=== PATIENT | female | born 1930 | race Caucasian/White ===

== ENCOUNTER 2017-02-10 08:08 | Emergency (ER) | payer MEDICARE ==
[~2017-02-10] VITALS: Ht 162.6 cm; Wt 64.0 kg
[~2017-02-10 08:08] MED LIST: ACET-1757 PO; ALPR0.25 PO; BISA10SU2 PR; DIAZ5TAB PO; DOCU-30 PO; ENOX40SY4 SQ; LEVO112T2 PO; LEVO125T PO; LEVO125T5 PO; MAG355OR15 PO; MULT1TAB60 PO; ONDA4TAB7 PO; OXYC5TAB3 PO; POLY17PO5 PO; SCOP1PAT TD
[2017-02-10] MEDS ORDERED: ONDANSETRON 2MG/ML, 2ML ONE (08:36)
[2017-02-10] MEDS ORDERED: MECLIZINE CHEWABLE 25 MG TAB ONE (08:45)
[2017-02-10] MEDS ORDERED: SODIUM CHLORIDE 0.9% 1,000ML IVBOLUS ONE (09:00)
[2017-02-10] MEDS ORDERED: ONDANSETRON 2MG/ML, 2ML IVPush ONE (09:00)
[2017-02-10] MEDS ORDERED: MECLIZINE CHEWABLE 25 MG TAB PO ONE (09:00)
[2017-02-10] MEDS ORDERED: SODIUM CHLORIDE FLUSH 10ML SYR IVF ONE (09:00)
[2017-02-10 09:25] LABS: ASPARTATE AMINO TRANSFERASE 18 U/L (15-37); BLOOD UREA NITROGEN 14 mg/dL (7-18)
[2017-02-10 09:32] LABS: IS PT STATUS REG ER OR PRE ER? YES
[2017-02-10 09:32] LABS: PATH.CAST-FLAG NOT PRESENT; SPERM-FLAG NOT PRESENT; SRC-FLAG NOT PRESENT; XTAL-FLAG NOT PRESENT; YLC-FLAG NOT PRESENT
[2017-02-10] MEDS ORDERED: GADOBUTROL 7.5 MMOL/7.5 ML PFS ONE (12:02)
[2017-02-10 13:02] VITALS: BP 127/78
== END 2017-02-10 13:04 | disposition home or self-care (01) ==
LOC: ED 09:51
DX: H81.13 Benign paroxysmal vertigo, bilateral (principal); E03.9 Hypothyroidism, unspecified; I48.91 Unspecified atrial fibrillation; I51.7 Cardiomegaly; M19.90 Unspecified osteoarthritis, unspecified site; Z85.3 Personal history of malignant neoplasm of breast
CPT/HCPCS: 36415; 70450; 70553; 71010; 80053; 81001; 84484; 85025; 85610; 85730; 87086; 93005; 96374; 99285; A9585; J2405; J7030

== ENCOUNTER 2018-02-05 11:06 | Inpatient (IN) | payer MEDICARE ==
[~2018-02-05] VITALS: Ht 167.6 cm; Wt 69.8 kg
[~2018-02-05 11:06] MED LIST changes: +DOCU-131 PO; -DOCU-30 PO; -SCOP1PAT TD; +SCOP1PAT11 TD
[2018-02-05] MEDS ORDERED: PLEASE ENTER HEIGHT AND WEIGHT MC SCH (11:30)
[2018-02-05] MEDS ORDERED: DIPH,PERTUSS(ACELL),TET VAC/PF 0.5 ML IM-VACC ONE ×2 (11:30→11:42)
[2018-02-05] MEDS ORDERED: SODIUM CHLORIDE FLUSH 10ML SYR IVF ONE (11:30)
[2018-02-05 11:51] LABS: ALBUMIN 3.3 g/dL (3.4-5.0); ANION GAP 7 mmol/L (5-15); CALCIUM 8.7 mg/dL (8.5-10.1); CHLORIDE 100 mmol/L (98-107); CREATININE 0.53 mg/dL (0.55-1.02)
[2018-02-05 12:43] LABS: BASOPHILS % (AUTO) 0 % (0-1); EOSINOPHILS # (AUTO) 0.09 x10^3/uL (0-0.4); EOSINOPHILS % (AUTO) 1 % (1-7); LYMPHOCYTES # (AUTO) 1.45 x10^3/uL (1-3.4); LYMPHOCYTES % (AUTO) 16 % (22-44); MD NO; MEAN CORPUSCULAR HEMOGLOBIN 31.2 pg (27.0-34.8); MEAN CORPUSCULAR HGB CONC 33.2 g/dL (32.4-35.8); MEAN CORPUSCULAR VOLUME 93.9 fL (80-100); MEAN PLATELET VOLUME 8.2 fL (7.4-10.4); MONOCYTES # (AUTO) 0.57 x10^3/uL (0.2-0.8); MONOCYTES % (AUTO) 6 % (2-9); NEUTROPHILS # (AUTO) 7.13 x10^3/uL (1.8-6.8); NEUTROPHILS % (AUTO) 77 % (42-75); PLATELET COUNT 223 x10^3/uL (130-400); RED CELL DISTRIBUTION WIDTH 15.4 % (9.6-15.2)
[2018-02-05] MEDS ORDERED: LEVO112T4 PO (12:54)
[2018-02-05] MEDS ORDERED: MORPHINE SULFATE 4 MG/ML, 1ML ONE (13:22)
[2018-02-05] MEDS ORDERED: ONDANSETRON ODT 4 MG PO PRN (13:30)
[2018-02-05] MEDS ORDERED: MORPHINE SULFATE 4 MG/ML, 1ML IVPush PRN (13:30)
[2018-02-05 14:44] VITALS: BP 143/73
[2018-02-05] MEDS ORDERED: ONDANSETRON 2MG/ML, 2ML IVPush PRN (15:30)
[2018-02-05] MEDS ORDERED: ACETAMINOPHEN 325 MG TABLET PO PRN (15:30)
[2018-02-05] MEDS ORDERED: morphine SULFATE 10 MG/ML, 1ML IVPush PRN (15:30)
[2018-02-05] MEDS ORDERED: ENOXAPARIN 40 MG/0.4 ML SQ SCH (15:30)
[2018-02-05] MEDS ORDERED: hydrALAzine 20 MG/ML, 1ML IVPush PRN (15:30)
[2018-02-05 15:56] VITALS: BP 119/68
[2018-02-05 16:03] LABS: INTERNATIONAL NORMALIZED RATIO 1.01 (0.93-1.1); PROTHROMBIN TIME 10.5 Seconds (9.6-11.5)
[2018-02-05 18:22] VITALS: BP 102/57
[2018-02-06 00:05] VITALS: BP 102/61
[2018-02-06 04:38] LABS: MEAN CORPUSCULAR HEMOGLOBIN 31.9 pg (27.0-34.8); MEAN CORPUSCULAR VOLUME 94.1 fL (80-100); MEAN PLATELET VOLUME 7.7 fL (7.4-10.4); PLATELET COUNT 193 x10^3/uL (130-400); RED BLOOD COUNT 3.72 x10^6/uL (3.82-5.3)
[2018-02-06 05:11] LABS: BASOPHILS # (AUTO) 0.02 x10^3/uL (0-0.1); BASOPHILS % (AUTO) 0 % (0-1); EOSINOPHILS # (AUTO) 0.16 x10^3/uL (0-0.4); EOSINOPHILS % (AUTO) 2 % (1-7); LYMPHOCYTES # (AUTO) 1.71 x10^3/uL (1-3.4); LYMPHOCYTES % (AUTO) 17 % (22-44); MD SCAN; MONOCYTES # (AUTO) 0.52 x10^3/uL (0.2-0.8); MONOCYTES % (AUTO) 5 % (2-9); NEUTROPHILS # (AUTO) 7.43 x10^3/uL (1.8-6.8); NEUTROPHILS % (AUTO) 76 % (42-75)
[2018-02-06] MEDS: HYDROcodone/APAP 5/325 TABLET PO PRN ×3 (06:50→21:08)
[2018-02-06] MEDS: ASPIRIN 81 MG TABLET EC PO SCH (06:50)
[2018-02-06] MEDS ORDERED: HEPARIN 5,000 UNITS/ML, 1ML SQ SCH (07:00)
[2018-02-06 07:15] VITALS: BP 105/63
[2018-02-06] MEDS: SODIUM CHLORIDE 0.9% 1,000 ML IV SCH (08:43)
[2018-02-06] MEDS: LEVOTHYROXINE 112 MCG TABLET PO SCH (08:43)
[2018-02-06] MEDS: DOCUSATE 100 MG CAPSULE PO SCH ×2 (11:00→19:37)
[2018-02-06] MEDS ORDERED: POLYETHYLENE GLYCOL 17 GM PACKET PO PRN (12:30)
[2018-02-06] MEDS: ENOXAPARIN 40 MG/0.4 ML SQ SCH (12:36)
[2018-02-06 13:55] VITALS: BP 103/61
[2018-02-06 22:15] VITALS: BP 105/62
[2018-02-07 02:35] VITALS: BP 108/68
[2018-02-07] MEDS: SODIUM CHLORIDE 0.9% 1,000 ML IV SCH (02:42)
[2018-02-07 05:45] LABS: CHLORIDE 103 mmol/L (98-107)
[2018-02-07 05:51] LABS: ALANINE AMINOTRANSFERASE 18 U/L (12-78); ALBUMIN 2.7 g/dL (3.4-5.0); ALKALINE PHOSPHATASE 63 U/L (45-117); ANION GAP 6 mmol/L (5-15); BILIRUBIN,TOTAL 0.9 mg/dL (0.2-1.0); CALCIUM 8.2 mg/dL (8.5-10.1); CREATININE 0.38 mg/dL (0.55-1.02); TOTAL PROTEIN 5.5 g/dL (6.4-8.2)
[2018-02-07 06:40] VITALS: BP 123/72
[2018-02-07] MEDS: ASPIRIN 81 MG TABLET EC PO SCH (06:50)
[2018-02-07] MEDS: HYDROcodone/APAP 5/325 TABLET PO PRN ×3 (06:50→18:29)
[2018-02-07] MEDS: LEVOTHYROXINE 112 MCG TABLET PO SCH (06:50)
[2018-02-07] MEDS: DOCUSATE 100 MG CAPSULE PO SCH ×2 (10:45→22:23)
[2018-02-07] MEDS: MAGNESIUM HYDROXIDE 8%, 30ML UDC PO SCH (10:45)
[2018-02-07] MEDS: ENOXAPARIN 40 MG/0.4 ML SQ SCH (13:57)
[2018-02-07 14:22] VITALS: BP 115/68
[2018-02-07 19:00] VITALS: BP 115/68
[2018-02-08 02:15] VITALS: BP 121/75
[2018-02-08] MEDS: HYDROcodone/APAP 5/325 TABLET PO PRN ×2 (02:20→20:59)
[2018-02-08] MEDS: ASPIRIN 81 MG TABLET EC PO SCH (06:26)
[2018-02-08] MEDS: LEVOTHYROXINE 112 MCG TABLET PO SCH (06:26)
[2018-02-08 07:19] VITALS: BP 126/66
[2018-02-08] MEDS: MAGNESIUM HYDROXIDE 8%, 30ML UDC PO SCH (08:09)
[2018-02-08] MEDS: DOCUSATE 100 MG CAPSULE PO SCH ×2 (08:09→19:53)
[2018-02-08] MEDS ORDERED: MAGNESIUM CITRATE 300ML ORAL SOL PO ONE (10:30)
[2018-02-08] MEDS: ENOXAPARIN 40 MG/0.4 ML SQ SCH (12:58)
[2018-02-08 15:07] VITALS: BP 140/67
[2018-02-08] MEDS ORDERED: HYDROcodone/APAP 5/325 TABLET PO PRN (15:30)
[2018-02-08 19:26] VITALS: BP 122/68
[2018-02-09 01:18] VITALS: BP 118/70
[2018-02-09 06:55] VITALS: BP 126/53
[2018-02-09] MEDS: LEVOTHYROXINE 112 MCG TABLET PO SCH (07:48)
[2018-02-09] MEDS: ASPIRIN 81 MG TABLET EC PO SCH (07:48)
[2018-02-09] MEDS: DOCUSATE 100 MG CAPSULE PO SCH ×2 (07:48→19:25)
[2018-02-09] MEDS: MAGNESIUM HYDROXIDE 8%, 30ML UDC PO SCH (07:49)
[2018-02-09] MEDS: ENOXAPARIN 40 MG/0.4 ML SQ SCH (12:38)
[2018-02-09 13:49] VITALS: BP 108/66
[2018-02-09] MEDS ORDERED: GADOBUTROL 7.5 MMOL/7.5 ML PFS ONE (16:59)
[2018-02-09 19:41] VITALS: BP 116/67
[2018-02-10 02:07] VITALS: BP 121/62
[2018-02-10 06:45] VITALS: BP 133/75
[2018-02-10] MEDS: HYDROcodone/APAP 5/325 TABLET PO PRN (09:45)
[2018-02-10] MEDS: ASPIRIN 81 MG TABLET EC PO SCH (09:45)
[2018-02-10] MEDS: MAGNESIUM HYDROXIDE 8%, 30ML UDC PO SCH (09:45)
[2018-02-10] MEDS: DOCUSATE 100 MG CAPSULE PO SCH (09:45)
[2018-02-10] MEDS: LEVOTHYROXINE 112 MCG TABLET PO SCH (09:48)
[2018-02-10] MEDS ORDERED: ACET325T14 PO (11:33)
[2018-02-10] MEDS ORDERED: DOCU-131 PO (11:33)
[2018-02-10] MEDS ORDERED: ASPI-621 PO (11:38)
[2018-02-10 12:42] VITALS: BP 129/70
[2018-02-10] MEDS: ENOXAPARIN 40 MG/0.4 ML SQ SCH (12:42)
== END 2018-02-10 13:36 | DRG 542 ==
LOC: ED 12:24 → EDIP 13:14 → 3NE 14:34 → 4NOR 15:56
PROVIDERS: ADMIT Internal Medicine; ATTEND Internal Medicine
DX: M80.052A Age-related osteoporosis with current pathological fracture, left femur, initial encounter for fracture (principal); E43 Unspecified severe protein-calorie malnutrition; E03.9 Hypothyroidism, unspecified; I48.0 Paroxysmal atrial fibrillation; S50.312A Abrasion of left elbow, initial encounter; Z96.642 Presence of left artificial hip joint; N83.202 Unspecified ovarian cyst, left side; I10 Essential (primary) hypertension; K59.00 Constipation, unspecified; W01.0XXA Fall on same level from slipping, tripping and stumbling without subsequent striking against object, initial encounter; G89.11 Acute pain due to trauma; Z90.49 Acquired absence of other specified parts of digestive tract; Z85.3 Personal history of malignant neoplasm of breast; Y93.89 Activity, other specified; Y92.89 Other specified places as the place of occurrence of the external cause; Y99.8 Other external cause status; Z91.018 Allergy to other foods; Z91.048 Other nonmedicinal substance allergy status; Z79.82 Long term (current) use of aspirin; Z79.899 Other long term (current) drug therapy
CPT/HCPCS: 36415; 71045; 72192; 80048; 80053; 82040; 82378; 84443; 85025; 85610; 90471; 90715; 93005; 96374; A9585; J1644; J1650; J2270; J7030

== ENCOUNTER 2018-07-09 11:19 | Emergency (ER) | payer MEDICARE ==
[~2018-07-09] VITALS: Ht 167.6 cm; Wt 65.0 kg
[~2018-07-09 11:19] MED LIST changes: +ACET325T14 PO; +ASPI81TA45 PO; +LEVO112T4 PO
[2018-07-09] MEDS ORDERED: KETOROLAC 30 MG/1 ML ONE (11:29)
[2018-07-09] MEDS ORDERED: METHOCARBAMOL 1,000 MG in DEXTROSE 5% 100 ML IV ONE (11:30)
[2018-07-09] MEDS ORDERED: KETOROLAC 30 MG/1 ML IVPush ONE (11:30)
[2018-07-09] MEDS ORDERED: NAPR220C2 PO (11:42)
[2018-07-09] MEDS ORDERED: ONDANSETRON 2MG/ML, 2ML ONE (13:07)
[2018-07-09 14:04] VITALS: BP 116/68
== END 2018-07-09 14:06 | disposition home or self-care (01) ==
LOC: ED 11:53
DX: S32.020A Wedge compression fracture of second lumbar vertebra, initial encounter for closed fracture (principal); I48.91 Unspecified atrial fibrillation; I48.92 Unspecified atrial flutter; E03.9 Hypothyroidism, unspecified; M19.90 Unspecified osteoarthritis, unspecified site; W18.30XA Fall on same level, unspecified, initial encounter; Y93.89 Activity, other specified; Y92.009 Unspecified place in unspecified non-institutional (private) residence as the place of occurrence of the external cause; Y99.8 Other external cause status
CPT/HCPCS: 72110; 73502; 93005; 96365; 96375; 99283; J1885; J2800

== ENCOUNTER 2018-07-30 14:08 | Emergency (ER) | payer MEDICARE ==
[~2018-07-30 14:08] MED LIST changes: +NAPR220C2 PO
[2018-07-30 14:19] VITALS: BP 170/86
== END 2018-07-30 15:20 | disposition home or self-care (01) ==
LOC: ED 15:14
DX: S20.211A Contusion of right front wall of thorax, initial encounter (principal); I48.91 Unspecified atrial fibrillation; E03.9 Hypothyroidism, unspecified; I48.92 Unspecified atrial flutter; X58.XXXA Exposure to other specified factors, initial encounter; Y93.89 Activity, other specified; Y92.410 Unspecified street and highway as the place of occurrence of the external cause; Y99.8 Other external cause status
CPT/HCPCS: 99283

== ENCOUNTER 2018-12-18 19:49 | Emergency (ER) | payer MEDICARE ==
[~2018-12-18] VITALS: Ht 167.6 cm; Wt 60.3 kg
[~2018-12-18 19:49] MED LIST changes: +IBUP-1840 PO; +LEVO100T PO
--- NOTE | 2018-12-18 20:42 | NUR ---
PT IN ROOM WITH SON AT BEDSIDE. IMAGING RESULTS BACK AND PT UP FOR RECHECK AT THIS TIME. PT EXPRESSES NO WANTS OR NEEDS AT THIS TIME.
--- NOTE | 2018-12-18 22:06 | NUR ---
REPORT RECEIVED FROM JEAN PIERRE VALDEZ.
[2018-12-18 22:18] VITALS: BP 149/68
--- NOTE | 2018-12-18 22:45 | NUR ---
PT GIVEN DC INSTRUCTIONS. PT'S AOX4. RESPS EVEN AND UNLABORED. PT WHEELED TO DC. NO ACUTE DISTRESS AT DC.
== END 2018-12-18 22:45 | disposition home or self-care (01) ==
LOC: ED 21:06
DX: S80.02XA Contusion of left knee, initial encounter (principal); M25.462 Effusion, left knee; W18.30XA Fall on same level, unspecified, initial encounter; Y93.89 Activity, other specified; Y92.009 Unspecified place in unspecified non-institutional (private) residence as the place of occurrence of the external cause; Y99.8 Other external cause status
CPT/HCPCS: 99283

== ENCOUNTER 2019-01-01 17:03 | Emergency (ER) | payer MEDICARE ==
[~2019-01-01] VITALS: Ht 167.6 cm; Wt 58.8 kg
--- NOTE | 2019-01-01 17:59 | NUR ---
PT RESTING IN [place] WITH SON AT BEDSIDE, AWAITING US. CALL LIGHT WITHIN REACH
[2019-01-01 18:01] LABS: BASOPHILS # (AUTO) 0.03 x10^3/uL (0-0.1); BASOPHILS % (AUTO) 0 % (0-1); EOSINOPHILS # (AUTO) 0.13 x10^3/uL (0-0.4); EOSINOPHILS % (AUTO) 2 % (1-7); LYMPHOCYTES # (AUTO) 1.44 x10^3/uL (1-3.4); LYMPHOCYTES % (AUTO) 18 % (22-44); MD NO; MEAN CORPUSCULAR HEMOGLOBIN 31.5 pg (27.0-34.8); MEAN CORPUSCULAR HGB CONC 32.8 g/dL (32.4-35.8); MEAN CORPUSCULAR VOLUME 96.1 fL (80-100); MEAN PLATELET VOLUME 7.7 fL (7.4-10.4); MONOCYTES # (AUTO) 0.37 x10^3/uL (0.2-0.8); MONOCYTES % (AUTO) 5 % (2-9); NEUTROPHILS # (AUTO) 6.18 x10^3/uL (1.8-6.8); NEUTROPHILS % (AUTO) 76 % (42-75); PLATELET COUNT 267 x10^3/uL (130-400); RED BLOOD COUNT 4.14 x10^6/uL (3.82-5.3)
[2019-01-01 18:11] LABS: ANION GAP 7 mmol/L (5-15); CALCIUM 8.7 mg/dL (8.5-10.1); CHLORIDE 104 mmol/L (98-107); CREATININE 0.56 mg/dL (0.55-1.02)
--- NOTE | 2019-01-01 18:43 | NUR ---
PT RETURNED FROM US
[2019-01-01 19:12] VITALS: BP 130/61
--- NOTE | 2019-01-01 19:12 | NUR ---
BREAK RN: PT ASKIGN ABOUT POC--UPDATED THAT CHART IS UP FOR RECHECK. AWAITING ERP RECHECK AND FURTHER DISPO. VSS. NO NEEDS EXPRESSED. CALL LIGHT IN REACH.
== END 2019-01-01 20:02 | disposition home or self-care (01) ==
LOC: ED 17:29
DX: R20.2 Paresthesia of skin (principal); R06.02 Shortness of breath; I48.91 Unspecified atrial fibrillation; E03.9 Hypothyroidism, unspecified; M19.90 Unspecified osteoarthritis, unspecified site; I48.92 Unspecified atrial flutter; Z85.3 Personal history of malignant neoplasm of breast
CPT/HCPCS: 36415; 80048; 85025; 93005; 99284